=== PATIENT | female | born 1945 | race Hispanic/Latino ===

== ENCOUNTER 2018-10-22 15:01 | Outpatient (CLI) | payer MEDICARE, MEDICAID | END 2018-10-22 15:02 | disposition home or self-care (01) | LOC: C.RADIC 15:01 ==

== ENCOUNTER 2018-10-28 11:50 | Outpatient (CLI) | payer MEDICARE, MEDICAID | END 2018-10-28 11:51 | disposition home or self-care (01) | LOC: C.USIC 11:50 | DX: R31.9 Hematuria, unspecified (principal) ==